=== PATIENT | male | born 1980 | race Caucasian/White ===

== ENCOUNTER 2016-06-06 21:29 | Inpatient (IN) | payer OTHER ==
[~2016-06-06] VITALS: Ht 175.3 cm; Wt 77.1 kg
[2016-06-06] MEDS ORDERED: MIRALAX 17 GM POWD.PACK PO PRN (22:30)
[2016-06-06] MEDS ORDERED: ONDANSETRON ODT 4 MG TAB.RAPDIS SL PRN (22:30)
[2016-06-06] MEDS ORDERED: diphenhydrAMINE 50 MG CAPSULE PO PRN (22:30)
[2016-06-06] MEDS ORDERED: THIAMINE HCL 200 MG/2 ML VIAL IM ONE (22:30)
[2016-06-06] MEDS ORDERED: ACETAMINOPHEN 325 MG TABLET PO PRN (22:30)
[2016-06-06] MEDS ORDERED: MAG HYDROX/AL HYDROX/SIMETH 30 ML LIQUID UDC PO PRN (22:30)
[2016-06-06] MEDS ORDERED: LORAZEPAM 1 MG TABLET PO PRN ×2 (22:30)
[2016-06-06] MEDS ORDERED: MAGNESIUM HYDROXIDE 30 ML LIQUID UDC PO PRN (22:30)
[2016-06-06] MEDS ORDERED: DICYCLOMINE HCL 20 MG TABLET PO PRN (22:30)
[2016-06-06] MEDS ORDERED: LOPERAMIDE HCL 2 MG CAPSULE PO PRN ×2 (22:30)
[2016-06-06] MEDS ORDERED: LORAZEPAM 2 MG/1 ML VIAL IM PRN (22:30)
[2016-06-06] MEDS ORDERED: ONDANSETRON 4 MG/2 ML VIAL IM PRN (22:30)
[2016-06-06 23:00] VITALS: BP 136/87
--- NOTE | 2016-06-06 23:00 | NUR ---
ADMISSION NOTE PATIENT ARRIVED IN THE UNIT AT THIS TIME. PATIENT IS A 35 YEAR OLD MALE WHO PRESENTS TO [facility] FOR SUPERVISED WITHDRAWAL FROM BENZO/ETOH DEPENDENCE. HEIGHT IS 5'9 AND WEIGHT IS 170 LBS. VS BP-136/87 P-98 T-98.0 R-17 PA-0/10 SpO2 98% ON RA. PATIENT REQUESTED TO BE FULL CODE AND REGULAR DIET (NO DAIRY HIS CHOICE). BODY CHECK DONE. PATIENT NOTED WITH ACNE ON BACK AREA. PATIENT IS ALLERGIC TO PENICILLIN. LUNGS CLEAR AND BOWEL SOUNDS ACTIVE ON ALL 4 QUADRANT. ABDOMEN SOFT AND NON -DISTENDED. PATIENT REPORTS PMH OF ANXIETY, DEPRESSION, ULCERATIVE COLITIS (8 YEARS AGO) AND SEIZURE WHEN HE WAS 25 YEARS OLD (ALCOHOL W/D). PATIENT IS HERE BECAUSE HE STATES "I'M ALEADY TIRED". 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 PATIENT'S DRUG OF CHOICE ARE FF: 1.XANAX PO- STARTED USING WHEN HE WAS 31 YRS OLD. PATIENT IS TAKING 1 MG DAILY FOR 4 MONTHS. LAST USE WAS 3 MG ON 06/06/16 2.ALCOHOL (RED & WHITE WINE)-STARTED USING WHEN HE WAS 11 YEARS OLD. DRINKING 3 (750 ML EACH ) BOTTLES FOR 8 MONTHS . LAST DRINK WAS 2 1/2 BOTTLES OF WHITE WINE ON 06/06/16 3.COCAINE (SNORT)-STARTED USING WHEN HE WAS 21 YEARS OLD. PATIENT IS USING 1/2 GRAM DAILY FOR 6 MONTHS. LAST USE WAS 1/2 GRAM ON 06/06/16 4.MARIJUANA - STARTED USING WHEN HE WAS 15 YEARS OLD. PATIENT SMOKES 1 GRAM DAILY FOR 6 MONTHS . LAST USE WAS 2 GRAM ON 06/06/16. TREATMENT HISTORY ARE FF: 1.[facility] IN [place] -06/02/15-30 DAYS 2.[facility] [place] -INTENSIVE OUTPATIENT [id number] MONTH PATIENT SMOKES 3 CIGARETTE DAILY . PATIENT DOES NOT HAVE PCP. PATIENT WAS INTOXICATED, NOTED WITH FLUSHED FACE, SWEATING AND ANXIOUS. CIWA 6. PATIENT STILL ABLE TO ANSWER QUESTIONS WITH SLURRED SPEECH AND DELAYED RESPONSE TIME. PATIENT ALREADY PROVIDED UA. PATIENT WAS SEEN BY DR. MULLIGAN IN INTAKE. PATIENT ORIENTED TO SURROUNDINGS AND HOW TO USE CALL LIGHT. PATIENT WITH HOME MEDS AND RECONCILED. PATIENT IS PLACED ON FALL/SEIZURE PRECAUTION. SAFETY MEASURES IN PLACE. CALL LIGHT IN REACH. WILL CONTINUE TO MONITOR.
[2016-06-06 23:10] LABS: BASOPHILS # (AUTO) 0.2 K/uL (0.0-8.0); BASOPHILS % (AUTO) 1.4 % (0.0-2.0); EOSINOPHILS # (AUTO) 0.1 K/uL (0.0-0.7); HEMATOCRIT 44.9 % (36.7-47.1); HEMOGLOBIN 15.7 g/dL (12.5-16.3); LYMPHOCYTES # (AUTO) 1.9 K/uL (20.0-40.0); LYMPHOCYTES % (AUTO) 17.4 % (20.5-51.5); MEAN CORPUSCULAR HEMOGLOBIN 33.9 uug (23.8-33.4); MEAN CORPUSCULAR HGB CONC 35 g/dL (32.5-36.3); MEAN CORPUSCULAR VOLUME 96.8 fL (73.0-96.2); MONOCYTES # (AUTO) 0.6 K/uL (2.0-10.0); MONOCYTES % (AUTO) 5.7 % (0.0-11.0); NEUTROPHILS # (AUTO) 8.3 K/uL (1.8-8.9); NEUTROPHILS % (AUTO) 74.5 % (38.5-71.5); PLATELET COUNT (AUTO) 211 K/uL (152-348); RED BLOOD CELL COUNT(AUTO) 4.64 MIL/uL (4.06-5.63); RED CELL DISTRIBUTION WIDTH 13.9 % (12.1-16.2); WHITE BLOOD COUNT (AUTO) 11.1 K/uL (3.6-10.2)
[2016-06-06 23:12] LABS: *AMPHETAMINE, URINE NEGATIVE (NEGATIVE); *BARBITURATE, URINE NEGATIVE (NEGATIVE); *CANNABINOID, URINE POSITIVE (NEGATIVE); *COCCAINE, URINE POSITIVE (NEGATIVE); *OPIATE, URINE NEGATIVE (NEGATIVE); *PHENCYCLIDINE SCREEN,URINE NEGATIVE (NEGATIVE)
[2016-06-06 23:30] LABS: THYROID STIMULATING HORMONE 0.48 mIU/mL (0.358-3.740)
[2016-06-06 23:48] LABS: ALBUMIN 4.5 g/dL (3.4-5.0); BILIRUBIN,TOTAL 0.3 mg/dL (0.2-1.0); CREATININE 0.8 mg/dL (0.6-1.3); POTASSIUM 3.9 mmol/L (3.5-5.1)
[2016-06-07] VITALS: BP 128/74
[2016-06-07] MEDS ORDERED: LORAZEPAM 1 MG TABLET ONE (00:08)
[2016-06-07] MEDS ORDERED: diphenhydrAMINE 50 MG CAPSULE ONE (00:08)
--- NOTE | 2016-06-07 00:08 | NUR ---
PRN BENADRYL /ONE TIME ATIVAN ADMINISTRATION PATIENT ANXIOUS, SWEATING, NOTED WITH FLUSHED FACE AND RESTLESS. CIWA 6. PRN BENADRYL AND ATIVAN GIVEN. WILL MONITOR FOR EFFECTIVENESS Addendum: 06/07/16 at 0518 by ELMIRA REHMAN LVN CLARIFICATION OF CIWA - ATIVAN GIVEN FOR CIWA 7
[2016-06-07 00:10] LABS: HIV-1/2 ANTIBODY NON REACTIVE (NONREACTIVE)
[2016-06-07 00:11] LABS: HIV-1 p24 ANTIGEN NON REACTIVE (NONREACTIVE)
--- NOTE | 2016-06-07 01:08 | NUR ---
PRN ATIVAN RE-ASSESSMENT PATIENT STATES HE FEELS MUCH BETTER. PATIENT IN BED, HIS ANXIETY SUBSIDED. WILL CONTINUE TO MONITOR
[2016-06-07] MEDS: IV NS 1000 ML 1,000 ML IV PRN ×2 (01:22→18:24)
--- NOTE | 2016-06-07 01:22 | NUR ---
IV STARTED PATIENT STARTED ON IV SODIUM CHLORIDE 0.9 5 1,0000 ML AT 125 MLS/HOUR ON LEFT HAND 22 G. IV FLUSHED NOTED PATENT AND INTACT. NO S/S OF INFILTRATE. WILL CONTINUE TO MONITOR.
--- NOTE | 2016-06-07 01:30 | NUR ---
PRN BENADRYL RE-ASSESSMENT PATIENT IN BED WITH EYES CLOSED. NO S/S OF DISTRESS. RESPIRATION EVEN AND UNLABORED. SAFETY MEASURES IN PLACE. CALL LIGHT IN REACH. WILL CONTINUE TO MONITOR.
[2016-06-07] MEDS ORDERED: GABA600T2 PO (03:11)
[2016-06-07] MEDS ORDERED: TRAZ-144 PO (03:13)
[2016-06-07] MEDS ORDERED: LACT1TAB22 PO (03:14)
[2016-06-07] MEDS ORDERED: CLON0.2T PO (03:16)
[2016-06-07] MEDS ORDERED: PARO30TA3 PO (03:17)
[2016-06-07] MEDS ORDERED: BALS750C PO (03:18)
[2016-06-07] MEDS ORDERED: TETR15DR99 OP (03:20)
[2016-06-07 04:00] VITALS: BP 113/66
[2016-06-07] MEDS: IBUPROFEN 400 MG TABLET PO PRN (05:52)
--- NOTE | 2016-06-07 05:52 | NUR ---
PRN MOTRIN ADMINISTRATION PATIENT C/O OF LEFT HAND PAIN 05/21. PRN MOTRIN GIVEN. WILL MONITOR FOR EFFECTIVENESS
--- NOTE | 2016-06-07 05:52 | NUR ---
IV STOPPED PATIENT NOTED IV SITE ON LEFT HAND, INFILTRATED. IV STOPPED. MOTRIN GIVEN. LEFT HAND ELEVATED. WILL CONTINUE TO MONITOR.
[2016-06-07] MEDS ORDERED: IBUPROFEN 400 MG TABLET ONE (06:00)
--- NOTE | 2016-06-07 06:13 | NUR ---
IV HELD PATIENT REFUSED RE-INSERTION AT THIS TIME. WILL ENDORSE TO NEXT SHIFT.
--- NOTE | 2016-06-07 06:52 | NUR ---
PRN MOTRIN RE-ASSESSMENT PATIENT STATES PAIN SUBSIDED. PAIN LEVEL 2/10. WILL CONTINUE TO MONITOR.
--- NOTE | 2016-06-07 07:25 | NUR ---
END OF SHIFT NOTE PATIENT IS A 35 YEAR OLD MALE, ADMITTED ON 06/06/16 FOR ETOH/BENZO DEPENDENCE. PATIENT WAS PLACED ON 5 DAY ATIVAN TAPER TO START TODAY. PATIENT IS FULL CODE, REGULAR DIET (NO DAIRY HIS CHOICE) AND ALLERGIC TO PENICILLIN. PATIENT REPORTS PMH OF ULCERATIVE COLITIS , ANXIETY, DEPRESSION AND ANEMIA. SEIZURE WHEN HE WAS 25 YEARS OLD (ALCOHOL W/D). PATIENT IS ON XANAX 1 MG FOR 4 MONTHS, ALCOHOL (WHITE /RED WINE) 3 BOTTLES 750 ML EACH FOR 8 MONTHS , COCAINE (SNORT) 1/2 GRAM FOR 6 MONTHS AND MARIJUANA 1 GRAM FOR 6 MONTHS. ON FALL SEIZURE PRECAUTION. PATIENT WITH ACNE ON BACK AREA. PATIENT WAS GIVEN THIAMINE INJECTION ON LEFT DELTOID , ONE TIME ATIVAN (CIWA 6) AND BENADRYL AT 0008 . PATIENT WAS ALSO STARTED ON IV SODIUM CHLORIDE 0.9% AT 125 MLS/HR ON LEFT HAND 22 G AT 0122. DUE TO PATIENT WITH ALCOHOLIC PANCREATITIS. 0555 IV WAS STOPPED DUE TO LEFT HAND NOTED INFILTRATED , LEFT HAND ELEVATED AND MOTRIN GIVEN. DR. MULLIGAN IS AWARE OF PATIENT'S ETHYL ALCOHOL % AND LIPASE RESULT. ON FALL/SEIZURE PRECAUTION. PATIENT REFUSED RE-INSERTION AND ENDORSE TO NEXT SHIFT. PATIENT NPO UNTIL FURTHER NOTICE. SAFETY MEASURES IN PLACE. CALL LIGHT IN REACH. WILL CONTINUE TO MONITOR. SLEPT 3 HOURS. FLUID INTAKE 775 ML. VOIDED X 1 . NO BM. LAST CIWA 3.
[2016-06-07 08:00] VITALS: BP 106/61
--- NOTE | 2016-06-07 08:00 | NUR ---
START OF SHift Pt 35 y/o male admitted for etoh benzo dependence. Pt received in room with eyes closed resting, but easily arousable to name. Pt alert and oriented to name, place, and time. Perrla. Skin warm and slightly moist to touch. Respirations even and unlabored. Bilateral tremors noted slightly. Attempted to insert peripheral IV, but pt refused at this time. Will attempt to start the IV again. Pt reminded that he is NPO and pt acknowledged. It was reported that pt slept for 3 hours last night. Bed on lowest position with side rails x2 up for safety. Call light within reach. No distress noted at this time.
[2016-06-07] MEDS ORDERED: TUBERCULIN,PURIF.PROT.DERIV. 5 TU/0.1 ML TEST ID ONE (09:00)
--- NOTE | 2016-06-07 09:30 | NUR ---
NSG ENTRY Pt refused to have IV inserted at this time. Will try again.
[2016-06-07] MEDS: MULTIVITAMINS,THERAPEUTIC TABLET PO SCH (09:43)
[2016-06-07] MEDS: LORAZEPAM 1 MG TABLET PO SCH ×4 (09:43→20:58)
[2016-06-07] MEDS: GABAPENTIN 300 MG CAPSULE PO SCH ×3 (09:43→20:58)
[2016-06-07] MEDS: THIAMINE HCL 100 MG TABLET PO SCH (09:43)
[2016-06-07] MEDS: FOLIC ACID 1 MG TABLET PO SCH (09:43)
[2016-06-07] MEDS: PATIENT MAY USE OWN MED- MD OK PO SCH ×3 (09:54→16:45)
[2016-06-07 12:00] VITALS: BP 113/68
--- NOTE | 2016-06-07 12:00 | NUR ---
IV line insertion 22G IV line inserted to R AC x 1 attempt, rapid blood return noted. Pt tolerated well. Primary nurse to follow up with IVF.
[2016-06-07] MEDS: PAROXETINE HCL 20 MG TABLET PO SCH (13:13)
[2016-06-07] MEDS ORDERED: KETOROLAC TROMETHAMINE 30 MG INJ IM PRN (14:15)
[2016-06-07 16:00] VITALS: BP 109/70
--- NOTE | 2016-06-07 18:18 | NUR ---
END OF SHIFT Pt 35 y/o male admitted for etoh benzo dependence. Pt alert and oriented to name, place, and time. Perrla. Skin warm and slightly moist to touch. Respirations even and unlabored. Bilateral hand tremors noted. Peripheral IV 22g on right AC, intact and in place, with no redness or infiltration noted, and is infusin NS 125mL/ hr, and is tolerated well. Pt remains on NPO. Pt needed to be prompted that he is not anything by mount. Pt medication compliant and tolerated well. No ASE noted. Bed on lowest position with side rail sx2.
--- NOTE | 2016-06-07 19:15 | NUR ---
Start of Shift Note: Patient is a 35 y/o male admitted on 06/06/16 for ETOH and Benzo dependence. Patient reported drinking 3 bottles of wine daily and he takes Xanax 1mg daily. Patient also uses Cocaine 0.5 gram and Marijuana 1 gram daily. Patient with past medical history of Ulcerative Colitis, Anxiety, Depression, Anemia and Seizure history d/t benzo withdrawal. Seizure and Fall precaution. Patient is on a regular diet with Allergies to Penicillins. Full Code status. Patient has 22gauge IV access on his left AC patent and intact with running NS @ 125 cc/hr. Patient is NPO d/t high levels of Lipase and Amylase. Pt may drink fluids when taking medications only Patient was placed on a 5-day Ativan taper. Last CIWA is 2. No PRN's medications given during day shift. Patient is alert & oriented x4. No shortness of breath noted. Respiration even & unlabored. Abdomen soft & non-distended. Bowel sounds active in all four quadrants. No nausea/vomiting noted. Patient denies pain or discomfort. No hallucinations noted. Patient denies SI/HI. Bilateral hand tremor felt. Safety precautions are in place. Bed locked in lowest position. Both side rails up. Call light within pt's reach. Will continue to monitor patient.
[2016-06-07 20:00] VITALS: BP 114/7
[2016-06-07] MEDS: TRAZODONE 50 MG TABLET PO SCH (20:58)
[2016-06-08] VITALS: BP 120/75
[2016-06-08 04:00] VITALS: BP 129/57
[2016-06-08] MEDS: PANTOPRAZOLE SODIUM 40 MG TABLET.DR PO SCH (06:59)
--- NOTE | 2016-06-08 07:31 | NUR ---
End of Shift Note: Patient is a 35 y/o male admitted on 06/06/16 for ETOH and Benzo dependence. Patient reported drinking 3 bottles of wine daily and he takes Xanax 1mg daily. Patient also uses Cocaine 0.5 gram and Marijuana 1 gram daily. Patient with past medical history of Ulcerative Colitis, Anxiety, Depression, Anemia and Seizure history d/t benzo withdrawal. Seizure and Fall precaution. Patient is on a regular diet with Allergies to Penicillins. Full Code status. Patient has 22gauge IV access on his left AC patent and intact. IVF done. Patient still on NPO status. Pt may have few sips of water with medications. Patient is on a 5-day Ativan taper and tolerating well. Last CIWA is 2. No PRN's medications given during my shift. Patient remained stable and vitals remains WNL. Pt remained compliant with treatment plan. Pt slept for a total of 9 hours. Pt consumed 50 ml of fluids. Voided 2x with no bowel movement. All needs attended & met. Safety precautions are in place. Will endorse pt to day shift nurse.
[2016-06-08 08:00] VITALS: BP 137/78
--- NOTE | 2016-06-08 08:00 | NUR ---
START OF SHIFT Pt 35 y/o male admitted for etoh benzo dependence. Pt received in room awake sitting on bed. Pt alert and oriented to name, place, and time. Perrla. Skin warm and slightly moist to touch. Respirations even and unlabored. Bilateral tremors noted slightly. Labs were drawn this morning, awaiting results. Pt reminded that he is NPO and pt acknowledged. It was reported that pt slept for 9 hours last night. Bed on lowest position with side rails x2 up for safety. Call light within reach. No distress noted at this time.
[2016-06-08 08:06] LABS: BASOPHILS % (AUTO) 0.6 % (0.0-2.0); EOSINOPHILS # (AUTO) 0.2 K/uL (0.0-0.7); EOSINOPHILS % (AUTO) 2.9 % (0.0-7.0); HEMATOCRIT 42.2 % (36.7-47.1); HEMOGLOBIN 14.3 g/dL (12.5-16.3); LYMPHOCYTES # (AUTO) 1.7 K/uL (20.0-40.0); LYMPHOCYTES % (AUTO) 21.7 % (20.5-51.5); MEAN CORPUSCULAR HEMOGLOBIN 33.3 uug (23.8-33.4); MEAN CORPUSCULAR HGB CONC 34 g/dL (32.5-36.3); MEAN CORPUSCULAR VOLUME 98.6 fL (73.0-96.2); MONOCYTES # (AUTO) 0.4 K/uL (2.0-10.0); MONOCYTES % (AUTO) 5.8 % (0.0-11.0); NEUTROPHILS # (AUTO) 5.4 K/uL (1.8-8.9); PLATELET COUNT (AUTO) 181 K/uL (152-348); RED BLOOD CELL COUNT(AUTO) 4.28 MIL/uL (4.06-5.63); RED CELL DISTRIBUTION WIDTH 14.1 % (12.1-16.2); WHITE BLOOD COUNT (AUTO) 7.7 K/uL (3.6-10.2)
[2016-06-08 08:18] LABS: ALBUMIN 3.3 g/dL (3.4-5.0); BILIRUBIN,DIRECT 0.1 mg/dL (0.0-0.2); BILIRUBIN,TOTAL 0.4 mg/dL (0.2-1.0); CALCIUM 8.8 mg/dL (8.5-10.1); CREATININE 0.9 mg/dL (0.6-1.3); PHOSPHOROUS 3.4 mg/dL (2.5-4.9); POTASSIUM 3.9 mmol/L (3.5-5.1); TOTAL PROTEIN, SERUM 6.1 g/dL (6.4-8.2)
[2016-06-08] MEDS: LORAZEPAM 1 MG TABLET PO SCH ×3 (08:33→22:10)
[2016-06-08] MEDS: GABAPENTIN 300 MG CAPSULE PO SCH ×3 (08:33→22:10)
[2016-06-08] MEDS: MULTIVITAMINS,THERAPEUTIC TABLET PO SCH (08:33)
[2016-06-08] MEDS: PATIENT MAY USE OWN MED- MD OK PO SCH ×3 (08:33→17:10)
[2016-06-08] MEDS: FOLIC ACID 1 MG TABLET PO SCH (08:34)
[2016-06-08] MEDS: PAROXETINE HCL 20 MG TABLET PO SCH (08:34)
[2016-06-08] MEDS: THIAMINE HCL 100 MG TABLET PO SCH (08:34)
[2016-06-08 09:08] LABS: FOLIC ACID 10.6 NG/ML (8.6-58.9)
--- NOTE | 2016-06-08 09:10 | NUR ---
NSG ENTRY/ LABS lipase =126. Pt denies any stomach pain. Pt also states "i'm very hungry". Dr. Correia made aware with new orders to dc npo, noted and carried out.
--- NOTE | 2016-06-08 09:30 | NUR ---
NSG ENTRY Pt tolerated meal well. Pt denies any stomach pain.
--- NOTE | 2016-06-08 11:25 | NUR ---
IV IV dc'd and tolerated well.
[2016-06-08 12:00] VITALS: BP 134/81
[2016-06-08] MEDS: HYDROXYZINE PAMOATE 25 MG CAPSULE PO PRN (12:35)
[2016-06-08] MEDS: CLONIDINE HCL 0.1 MG TABLET PO PRN (12:35)
--- NOTE | 2016-06-08 12:38 | NUR ---
PRN Pt states feels anxious and uneasy. Vistaril po prn per MD order given and tolerated well.
--- NOTE | 2016-06-08 12:39 | NUR ---
PRN Pt states still feels very uneasy and anxious. Catapres po prn per MD order given and tolerated well.
[2016-06-08 13:25] LABS: HCV AB <0.1 s/co ratio (0.0-0.9); HEPATITIS B CORE AB, IgM Negative (Negative); HEPATITIS B SURFACE AG Negative (Negative)
--- NOTE | 2016-06-08 13:38 | NUR ---
MAURICE GONSALVES Pt observed in bed watching television. Pt states he feels less anxious.
--- NOTE | 2016-06-08 13:39 | NUR ---
MAURICE GONSALVES Pt observed in bed watching television. Pt states he feels less anxious.
[2016-06-08 16:00] VITALS: BP 109/69
--- NOTE | 2016-06-08 18:29 | NUR ---
END OF SHIFT Pt 35 y/o male admitted for etoh benzo dependence. Pt alert and oriented to name, place, and time. Perrla. Skin warm and slightly moist to touch. Respirations even and unlabored. Bilateral hand tremors noted. Peripheral IV was dc'd today and pt tolerated well. Pt was removed off NPO this morning and tolerating food well. Pt medication compliant and tolerated well. No ASE noted. Bed on lowest position with side rail sx2.
--- NOTE | 2016-06-08 19:15 | NUR ---
Start of Shift Note: Patient is a 35 y/o male admitted on 06/06/16 for ETOH and Benzo dependence. Patient reported drinking 3 bottles of wine daily and he takes Xanax 1mg daily. Patient also uses Cocaine 0.5 gram and Marijuana 1 gram daily. Patient with past medical history of Ulcerative Colitis, Anxiety, Depression, Anemia and Seizure history d/t benzo withdrawal. Seizure and Fall precaution. Patient is on a regular diet with Allergies to Penicillins. Full Code status. Current Lipase is 126. IV DCd and pt is no longer NPO. Patient is on a 5-day Ativan taper. Last CIWA is 2. Pt was given PRN Catapres & Vistaril during day shift. Patient is alert & oriented x4. No shortness of breath noted. Respiration even & unlabored. Abdomen soft & non-distended. Bowel sounds active in all four quadrants. No nausea/vomiting noted. Patient complains of mild headache. No hallucinations noted. Patient denies SI/HI. Bilateral hand tremor felt. Safety precautions are in place. Bed locked in lowest position. Both side rails up. Call light within pt's reach. Will continue to monitor patient.
[2016-06-08] MEDS: IBUPROFEN 400 MG TABLET PO PRN (20:47)
--- NOTE | 2016-06-08 20:47 | NUR ---
PRN Administration Patient complains of 8/10 generalized body aches. Patient appears restless with facial grimacing noted. Non-pharmacological intervention provided but not effective. PRN Motrin administered as ordered. Safety precautions are in place. Will continue to monitor patient.
[2016-06-08 20:56] VITALS: BP 116/67
--- NOTE | 2016-06-08 21:47 | NUR ---
PRN Reassessment Patient verbalized relief from body aches. Patient is more comfortable lying in bed. All needs attended. Safety precautions are in place. Will continue to monitor patient.
[2016-06-08] MEDS: TRAZODONE 50 MG TABLET PO SCH (22:10)
[2016-06-09] VITALS: BP 102/69
[2016-06-09 04:00] VITALS: BP 97/46
[2016-06-09] MEDS: PANTOPRAZOLE SODIUM 40 MG TABLET.DR PO SCH (06:37)
--- NOTE | 2016-06-09 07:00 | NUR ---
End of Shift Note: Patient is a 35 y/o male admitted on 06/06/16 for ETOH and Benzo dependence. Patient reported drinking 3 bottles of wine daily and he takes Xanax 1mg daily. Patient also uses Cocaine 0.5 gram and Marijuana 1 gram daily. Patient with past medical history of Ulcerative Colitis, Anxiety, Depression, Anemia and Seizure history d/t benzo withdrawal. Seizure and Fall precaution. Patient is on a regular diet with Allergies to Penicillins. Full Code status. Patient is on a 5-day Ativan taper and tolerating well. Pt reported that medication is effective in controlling his withdrawal symptoms. Last CIWA is 6. PRN Motrin was given for body aches and was effective. Patient remained stable and vitals remains WNL. Pt remained compliant with treatment plan. Pt slept for a total of 7 hours. Pt consumed 1355 ml of fluids. Voided 3x with no bowel movement. All needs attended & met. Safety precautions are in place. Will endorse pt to day shift nurse.
--- NOTE | 2016-06-09 07:30 | NUR ---
Start of shift note; Received report from night nurse. Patient is a 35 y/o male admitted on 06/06/16 for Benzodiazepine/ETOH dependence. Patient reported history of ulcerative colitis, seizure history, anxiety, depression, anemia. Patient was placed on a 5 day Ativan taper, no adverse reactions noted. Patient is currently resting with eyes closed, respirations even and unlabored. Bed in lowest position, call light within reach. Will continue to monitor patient.
[2016-06-09 08:00] VITALS: BP 130/80
[2016-06-09] MEDS: THIAMINE HCL 100 MG TABLET PO SCH (09:19)
[2016-06-09] MEDS: PAROXETINE HCL 20 MG TABLET PO SCH (09:19)
[2016-06-09] MEDS: MULTIVITAMINS,THERAPEUTIC TABLET PO SCH (09:19)
[2016-06-09] MEDS: LORAZEPAM 1 MG TABLET PO SCH ×4 (09:20→21:20)
[2016-06-09] MEDS: PATIENT MAY USE OWN MED- MD OK PO SCH ×3 (09:20→16:27)
[2016-06-09] MEDS: FOLIC ACID 1 MG TABLET PO SCH (09:20)
[2016-06-09] MEDS: GABAPENTIN 300 MG CAPSULE PO SCH ×3 (09:20→21:19)
[2016-06-09 12:00] VITALS: BP 140/103
[2016-06-09] MEDS: CLONIDINE HCL 0.1 MG TABLET PO PRN (12:12)
--- NOTE | 2016-06-09 12:17 | NUR ---
PRN medication; Patient appears agitated and complaining of chills with current BP of 140/103, HR of 71. PRN Clonidine 0.1mg given for agitation and increased BP. Will continue to monitor patient for effectiveness of medication.
--- NOTE | 2016-06-09 13:17 | NUR ---
Re-assessment; Patient appears calm and comfortable with current BP of 128/77, HR 76. PRN medication is effective.
[2016-06-09 16:00] VITALS: BP 119/75
--- NOTE | 2016-06-09 18:31 | NUR ---
End of shift note; Patient is AOX4. Patient is a 35 y/o male admitted on 06/06/16 for Benzodiazepine/ETOH dependence. Patient reported history of ulcerative colitis, seizure history, anxiety, depression, anemia. Patient was placed on a 5 day Ativan taper, no adverse reactions noted. Patient remained compliant with treatment plan and medication regime. Medications were effective in reducing withdrawal symptoms. Patient is on fall and seizure precautions. Bed in lowest position,call light within reach. Met all needs.
--- NOTE | 2016-06-09 19:15 | NUR ---
Start of Shift Note: Patient is a 35 y/o male admitted on 06/06/16 for ETOH and Benzo dependence. Patient with past medical history of Ulcerative Colitis, Anxiety, Depression, Anemia and Seizure history d/t benzo withdrawal. Seizure and Fall precaution. Patient is on a regular diet with Allergies to Penicillins. Full Code status. Patient is on a 5-day Ativan taper and tolerating well. Last CIWA is 5. Pt was given PRN Clonidine during day shift. Patient is alert & oriented x4. No shortness of breath noted. Respiration even & unlabored. Abdomen soft & non-distended. Bowel sounds active in all four quadrants. No nausea/vomiting noted. Patient complains of 4/10 body aches. No hallucinations noted. Patient denies SI/HI. Bilateral hand tremor noted. Safety precautions are in place. Bed locked in lowest position. Both side rails up. Call light within pt's reach. Will continue to monitor patient.
[2016-06-09 20:00] VITALS: BP 129/78
[2016-06-09] MEDS: TRAZODONE 50 MG TABLET PO SCH (21:19)
[2016-06-09] MEDS: CLONIDINE HCL 0.1 MG TABLET PO SCH (21:19)
[2016-06-10] VITALS: BP 109/61
[2016-06-10 04:00] VITALS: BP 102/56
[2016-06-10] MEDS: PANTOPRAZOLE SODIUM 40 MG TABLET.DR PO SCH (06:36)
[2016-06-10] MEDS: BACLOFEN 20 MG TABLET PO PRN ×2 (06:39→22:31)
--- NOTE | 2016-06-10 06:39 | NUR ---
Prn Administration Patient complains of 8/10 body aches. Patient is restless and with facial grimacing noted. PRN Baclofen administered as ordered. Will continue to monitor patient.
--- NOTE | 2016-06-10 07:05 | NUR ---
End of Shift Note: Patient is a 35 y/o male admitted on 06/06/16 for ETOH and Benzo dependence. Patient reported drinking 3 bottles of wine daily and he takes Xanax 1mg daily. Patient also uses Cocaine 0.5 gram and Marijuana 1 gram daily. Patient with past medical history of Ulcerative Colitis, Anxiety, Depression, Anemia and Seizure history d/t benzo withdrawal. Seizure and Fall precaution. Patient is on a regular diet with Allergies to Penicillins. Full Code status. Patient is on a 5-day Ativan taper and tolerating well. Pt reported that medication is effective in controlling his withdrawal symptoms. Last CIWA is 5. Pt was given PRN Baclofen for body aches. Patient remained stable and vitals remains WNL. Pt remained compliant with treatment plan. Pt slept for a total of 7 hours. Pt consumed 1210 ml of fluids. Voided 1x with 1x bowel movement. All needs attended & met. Safety precautions are in place. Will endorse pt to day shift nurse.
[2016-06-10 08:00] VITALS: BP 106/65
[2016-06-10] MEDS: THIAMINE HCL 100 MG TABLET PO SCH (08:42)
[2016-06-10] MEDS: MULTIVITAMINS,THERAPEUTIC TABLET PO SCH (08:42)
[2016-06-10] MEDS: GABAPENTIN 300 MG CAPSULE PO SCH ×3 (08:42→21:26)
[2016-06-10] MEDS: PAROXETINE HCL 20 MG TABLET PO SCH (08:42)
[2016-06-10] MEDS: FOLIC ACID 1 MG TABLET PO SCH (08:42)
[2016-06-10] MEDS: PATIENT MAY USE OWN MED- MD OK PO SCH ×3 (08:43→17:00)
[2016-06-10] MEDS: CLONIDINE HCL 0.1 MG TABLET PO SCH ×3 (08:43→21:26)
[2016-06-10] MEDS: LORAZEPAM 1 MG TABLET PO SCH ×3 (08:43→21:26)
[2016-06-10 12:00] VITALS: BP 114/85
[2016-06-10] MEDS: HYDROXYZINE PAMOATE 25 MG CAPSULE PO PRN (12:00)
--- NOTE | 2016-06-10 12:00 | NUR ---
PRN medication; Patient appears to be very anxious and agitated m/b by facial grimacing, patient pacing back and forth in the room and HR of 101. PRN Vistaril 25mg PO given for anxiety. Will continue to monitor patient for effectiveness of medication.
[2016-06-10] MEDS ORDERED: LORAZEPAM 1 MG TABLET PO ONE (12:30)
--- NOTE | 2016-06-10 12:31 | NUR ---
New Order; MD ordered One time dose of Ativan 1mg PO now. Patient's current CIWA is 10 manifested by anxiety, sweating, agitation, tremors to touch, BP of 124/95, HR of 101. Order given as per MD order. Will continue to monitor patient.
--- NOTE | 2016-06-10 13:00 | NUR ---
Re-assessment; Patient appears calm and comfortable, PRN Vistaril is effective. Will continue to monitor patient.
--- NOTE | 2016-06-10 13:31 | NUR ---
Re-assessment; One time order is effective, patient appears calm at this time. Patient's CIWA score went down to 6 from CIWA of 10. Will continue to monitor patient.
[2016-06-10 16:00] VITALS: BP 137/88
[2016-06-10 20:00] VITALS: BP 116/95
--- NOTE | 2016-06-10 20:00 | NUR ---
Start of Shift Pt is a 35 year old male admitted for Benzo/ETOH dependence, placed on 5 day Ativan taper. PMH: Ulcerative colitis, anxiety, depression, anemia and seizure history d/t withdrawal. Allergies to PCN, regular diet , fall/seizure precautions and full code. Upon assessment, pt presents with anxiety, tremors felt upon touch, reports body aches mild chills throughout body, skin flushed/clammy, respirations even/unlabored, denies SOB/chest pain, denies n/v/d, denies SI/HI, bowel sounds active x4, abdomen soft. Safety measures in place, call light within reach, side rails up x2, bed locked and in low position. will continue to monitor.
[2016-06-10] MEDS: TRAZODONE 50 MG TABLET PO SCH (21:26)
--- NOTE | 2016-06-10 22:31 | NUR ---
PRN Administration Pt reports muscle aches in neck and lower back, aches rated 8/10. Baclofen 20mg PRN administered. Safety measure in place. Will continue to monitor.
--- NOTE | 2016-06-10 23:31 | NUR ---
PRN Reassessment Upon reassessment, pt reports muscle aches have decreased to 3-4/10 and subsiding. needs met, safety measures in place. Will continue to monitor.
[2016-06-11] VITALS: BP 103/88
--- NOTE | 2016-06-11 | NUR ---
Vital Signs BP 103/88, pulse 93, SpO2 99%, respirations 14, temp 98 CIWA deferred d/t pt sleeping, to assess while pt is awake as ordered. Safety measures in place. Will continue to monitor.
[2016-06-11 04:00] VITALS: BP 96/54
--- NOTE | 2016-06-11 04:00 | NUR ---
Vital Signs BP 96/54, pulse 68, SpO2 98%, respirations 16, temp 97.8 CIWA deferred d/t pt sleeping, to assess while pt is awake as ordered. Safety measures in place. Will continue to monitor.
[2016-06-11] MEDS: PANTOPRAZOLE SODIUM 40 MG TABLET.DR PO SCH (06:50)
--- NOTE | 2016-06-11 07:00 | NUR ---
End of Shift Pt is a 35 year old male admitted for Benzo/ETOH dependence, placed on 5 day Ativan taper. PMH: Ulcerative colitis, anxiety, depression, anemia and seizure history d/t withdrawal. Allergies to PCN, regular diet , fall/seizure precautions and full code. During shift, pt presented with anxiety, tremors felt upon touch, reported body aches mild chills throughout body, skin flushed/clammy - scheduled taper medications administered, CIWA6. Baclofen 20mg PRN administered for muscle aches in neck and lower back rated 8/10 - effective aches decreased to 3-4/10. Pt slept for 6 hours, intake of 3105 ml PO and voids x2. Safety measures in place, call light within reach, side rails up x2, bed locked and in low position. Endorsed to day shift nurse.
--- NOTE | 2016-06-11 07:35 | NUR ---
START OF SHIFT Received report from shift mgr nurse. 35 year old male patient admitted on 06/06/16 for Benzo, ETOH, Cocaine and Marijuana dependence. Pt has been placed on a 5 day Ativan taper and is tolerating well. Pt has medical hx of ulcerative colitis, anxiety, depression and anemia. Pt is allergic to PCN, full code and regular diet. Pt most recent CIWA 6. Pt has hx of seizures that are withdrawal induced. PRN Baclofen was administered at night and effective. V/S remain WNL. All needs met at this time. Safety precautions are in place, will continue to monitor.
[2016-06-11 07:50] LABS: ALANINE AMINOTRANSFERASE 116 U/L (16-63); ALBUMIN 3.8 g/dL (3.4-5.0); ALKALINE PHOSPHATASE 53 U/L (50-136); ASPARTATE AMINOTRANSFERASE 90 U/L (15-37); BILIRUBIN,DIRECT < 0.1 mg/dL (0.0-0.2); BILIRUBIN,TOTAL 0.4 mg/dL (0.2-1.0); CARBON DIOXIDE 30 mmol/L (21-32); CHLORIDE 106 mmol/L (98-107); CREATININE 0.8 mg/dL (0.6-1.3); GFR 111 mL/min (>60); GLUCOSE 92 mg/dL (74-106); LIPASE 232 U/L (73-393); PHOSPHOROUS 4.2 mg/dL (2.5-4.9); SODIUM SERUM 144 mmol/L (136-145); TOTAL PROTEIN, SERUM 6.9 g/dL (6.4-8.2); UREA NITROGEN, BLOOD 16 mg/dL (7-18)
[2016-06-11 08:10] VITALS: BP 116/71
[2016-06-11 08:23] LABS: BASOPHILS % (AUTO) 0.5 % (0.0-2.0); EOSINOPHILS # (AUTO) 0.2 K/uL (0.0-0.7); EOSINOPHILS % (AUTO) 2.2 % (0.0-7.0); HEMATOCRIT 44.2 % (36.7-47.1); HEMOGLOBIN 14.8 g/dL (12.5-16.3); LYMPHOCYTES # (AUTO) 2.4 K/uL (20.0-40.0); LYMPHOCYTES % (AUTO) 27.9 % (20.5-51.5); MEAN CORPUSCULAR HEMOGLOBIN 33.1 uug (23.8-33.4); MEAN CORPUSCULAR HGB CONC 34 g/dL (32.5-36.3); MEAN CORPUSCULAR VOLUME 98.7 fL (73.0-96.2); MONOCYTES # (AUTO) 0.9 K/uL (2.0-10.0); MONOCYTES % (AUTO) 10.2 % (0.0-11.0); NEUTROPHILS # (AUTO) 5.3 K/uL (1.8-8.9); NEUTROPHILS % (AUTO) 59.2 % (38.5-71.5); PLATELET COUNT (AUTO) 203 K/uL (152-348); RED BLOOD CELL COUNT(AUTO) 4.48 MIL/uL (4.06-5.63); RED CELL DISTRIBUTION WIDTH 14.1 % (12.1-16.2); WHITE BLOOD COUNT (AUTO) 8.8 K/uL (3.6-10.2)
[2016-06-11] MEDS: MULTIVITAMINS,THERAPEUTIC TABLET PO SCH (08:35)
[2016-06-11] MEDS: FOLIC ACID 1 MG TABLET PO SCH (08:35)
[2016-06-11] MEDS: CLONIDINE HCL 0.1 MG TABLET PO SCH ×3 (08:35→20:59)
[2016-06-11] MEDS: GABAPENTIN 300 MG CAPSULE PO SCH ×3 (08:35→20:59)
[2016-06-11] MEDS: BACLOFEN 20 MG TABLET PO PRN ×2 (08:35→16:26)
--- NOTE | 2016-06-11 08:35 | NUR ---
PRN BACLOFEN Pt c/o 05/21 back pain. PRN Baclofen administered as ordered. Pt encouraged to rest. Will reassess.
[2016-06-11] MEDS: THIAMINE HCL 100 MG TABLET PO SCH (08:36)
[2016-06-11] MEDS: LORAZEPAM 1 MG TABLET PO SCH ×2 (08:36→21:00)
[2016-06-11] MEDS: PAROXETINE HCL 20 MG TABLET PO SCH (08:36)
[2016-06-11] MEDS: PATIENT MAY USE OWN MED- MD OK PO SCH ×3 (08:38→17:15)
--- NOTE | 2016-06-11 09:35 | NUR ---
REASSESSMENT Pt reports pain is still 4/10, but states "I will rest, I don't want any more medication at this time." Nonpharmacological methods encouraged. Will monitor.
[2016-06-11 12:26] VITALS: BP 126/80
--- NOTE | 2016-06-11 16:26 | NUR ---
PRN BACLOFEN Pt complains of 8/10 back muscle aches. PRN Baclofen administered as ordered. Will reassess.
[2016-06-11 17:15] VITALS: BP 123/80
--- NOTE | 2016-06-11 17:26 | NUR ---
REASSESSMENT Pt states back pain is slowly decreasing and reports it as 5/10 at this time.
--- NOTE | 2016-06-11 18:45 | NUR ---
END OF SHIFT 35 year old male patient admitted on 06/06/16 for Benzo, ETOH, Cocaine and Marijuana dependence. Pt has been placed on a 5 day Ativan taper and is tolerating well. Pt has medical hx of ulcerative colitis, anxiety, depression and anemia. Pt is allergic to PCN, full code and regular diet. Pt most recent CIWA 4 at 1700. Pt has hx of seizures that are withdrawal induced. PRN Baclofen was administered x2 and effective. Pt reports BM x2. Pt attends groups and socializes with peers. V/S remain WNL. All needs met at this time. Safety precautions are in place, will continue to monitor.
[2016-06-11 20:00] VITALS: BP 131/86
--- NOTE | 2016-06-11 20:00 | NUR ---
Start of Shift Pt is a 35 year old male admitted for Benzo/ETOH dependence, placed on 5 day Ativan taper. PMH: Ulcerative colitis, anxiety, depression, anemia and seizure history d/t withdrawal. Allergies to PCN, regular diet , fall/seizure precautions and full code. Upon assessment, pt presents with anxiety, reports body aches in lower back, skin flushed/clammy, respirations even/unlabored, denies SOB/chest pain, denies n/v/d, denies SI/HI, bowel sounds active x4, abdomen soft. Safety measures in place, call light within reach, side rails up x2, bed locked and in low position. will continue to monitor.
[2016-06-11] MEDS: TRAZODONE 100 MG TABLET PO SCH (20:59)
[2016-06-11] MEDS: IBUPROFEN 400 MG TABLET PO PRN (21:00)
[2016-06-11] MEDS ORDERED: TRAZODONE 50 MG TABLET PO SCH (21:00)
--- NOTE | 2016-06-11 21:00 | NUR ---
PRN Administration Pt reports back pain, rated 7/10, requests relief. Motrin 400mg PRN administered. Safety measures in place. Will continue to monitor.
--- NOTE | 2016-06-11 22:00 | NUR ---
PRN Reassessment Upon reassessment, reports back pain 04/20. Needs met, safety measures in place, will continue to monitor.
[2016-06-12] VITALS: BP 121/80
--- NOTE | 2016-06-12 | NUR ---
Vital Signs BP 121/80, pulse 93, respirations 17, SpO2 98%, temp 98, no reports of pain CIWA deferred d/t pt sleeping, to assess while pt is awake as ordered. Safety measures in place. Will continue to monitor.
[2016-06-12 04:00] VITALS: BP 95/53
--- NOTE | 2016-06-12 04:00 | NUR ---
Vital Signs BP 95/53, pulse 58, respirations 12, SpO2 96%, temp 98, no reports of pain CIWA deferred d/t pt sleeping, to assess while pt is awake as ordered. Safety measures in place. Will continue to monitor.
[2016-06-12] MEDS: PANTOPRAZOLE SODIUM 40 MG TABLET.DR PO SCH (06:47)
--- NOTE | 2016-06-12 07:00 | NUR ---
End of Shift Pt is a 35 year old male admitted for Benzo/ETOH dependence, placed on 5 day Ativan taper. PMH: Ulcerative colitis, anxiety, depression, anemia and seizure history d/t withdrawal. Allergies to PCN, regular diet , fall/seizure precautions and full code. During shift, pt presented with anxiety, reported body aches in lower back, skin flushed/clammy - scheduled taper medications administered, effective in management if in s/s of withdrawal, CIWA 4. Motrin 400mg PRN administered for back pain, effective. Pt refused scheduled Protonix 40mg PRN in AM. Pt slept for 5 hours, intake of 1855 ml PO and voids x2. Safety measures in place, call light within reach, side rails up x2, bed locked and in low position. Endorsed to day shift nurse.
--- NOTE | 2016-06-12 07:30 | NUR ---
Start of shift note; Received report from night nurse. Patient is a 35 y/o male admitted on 06/06/16 for Benzodiazepine/ETOH dependence. Patient reported history of ulcerative colitis, seizure history, anxiety, depression, anemia. Patient was placed on a 5 day Ativan taper, no adverse reactions noted. Patient is currently resting with eyes closed, respirations even and unlabored. Bed in lowest position, call light within reach. Patient slept for 5 hours. Will continue to monitor patient.
[2016-06-12 08:00] VITALS: BP 116/66
[2016-06-12] MEDS: FOLIC ACID 1 MG TABLET PO SCH (08:37)
[2016-06-12] MEDS: MULTIVITAMINS,THERAPEUTIC TABLET PO SCH (08:37)
[2016-06-12] MEDS: CLONIDINE HCL 0.1 MG TABLET PO SCH ×3 (08:37→21:07)
[2016-06-12] MEDS: PAROXETINE HCL 20 MG TABLET PO SCH (08:37)
[2016-06-12] MEDS: GABAPENTIN 300 MG CAPSULE PO SCH ×3 (08:38→21:07)
[2016-06-12] MEDS: THIAMINE HCL 100 MG TABLET PO SCH (08:38)
[2016-06-12] MEDS: PATIENT MAY USE OWN MED- MD OK PO SCH ×3 (08:38→16:50)
[2016-06-12] MEDS ORDERED: LORAZEPAM 1 MG TABLET PO SCH (09:00)
[2016-06-12] MEDS: BACLOFEN 20 MG TABLET PO PRN ×2 (09:51→16:50)
--- NOTE | 2016-06-12 09:55 | NUR ---
PRN medication; Patient is complaining of abdominal spasms/cramps, PRN Bentyl 20mg PO PRN given as per ordered and Baclofen 20mg PO PRN given for muscle spams. Will monitor patient for effectiveness of medication.
--- NOTE | 2016-06-12 10:55 | NUR ---
Re-assessment; Patient denies abdominal spasms/cramps and decrease in muscle spasms. PRN medications are effective.
[2016-06-12 12:00] VITALS: BP 121/65
[2016-06-12 14:47] LABS: *AMPHETAMINE, URINE NEGATIVE (NEGATIVE); *BARBITURATE, URINE NEGATIVE (NEGATIVE); *CANNABINOID, URINE POSITIVE (NEGATIVE); *COCCAINE, URINE NEGATIVE (NEGATIVE); *OPIATE, URINE NEGATIVE (NEGATIVE); *PHENCYCLIDINE SCREEN,URINE NEGATIVE (NEGATIVE)
--- NOTE | 2016-06-12 15:10 | NUR ---
Therapist encouraged client to attend group.
[2016-06-12] MEDS: DICYCLOMINE HCL 20 MG TABLET PO SCH ×2 (15:16→21:07)
[2016-06-12 16:00] VITALS: BP 110/67
--- NOTE | 2016-06-12 16:50 | NUR ---
PRN medication; Patient is complaining of muscle spasms. PRN Baclofen 20mg PO given as per ordered. Will continue to monitor for effectiveness of medication.
[2016-06-12] MEDS ORDERED: Gabapentin PO ×2 (17:17)
[2016-06-12] MEDS ORDERED: Trazodone Hcl PO (17:17)
[2016-06-12] MEDS ORDERED: Baclofen PO (17:17)
[2016-06-12] MEDS ORDERED: Ibuprofen PO (17:17)
[2016-06-12] MEDS ORDERED: HYDR-3895 PO (17:17)
[2016-06-12] MEDS ORDERED: DICY20TA28 PO (17:17)
[2016-06-12] MEDS ORDERED: CLON0.1T14 PO (17:17)
--- NOTE | 2016-06-12 17:50 | NUR ---
Re-assessment; Patient denies muscle spasms at this time. PRN medication is effective.
--- NOTE | 2016-06-12 18:23 | NUR ---
End of shift note; Patient is AOX4. Patient is a 35 y/o male admitted on 06/06/16 for Benzodiazepine/ETOH dependence. Patient reported history of ulcerative colitis, seizure history, anxiety, depression, anemia. Patient was placed on a 5 day Ativan taper completed taper without any adverse reactions noted. Patient remained compliant with treatment plan and medication regime. Medications were effective in reducing withdrawal symptoms. Patient is medically cleared for discharge for tomorrow. Patient is on fall and seizure precautions. Bed in lowest position,call light within reach. Met all needs.
[2016-06-12 20:00] VITALS: BP 112/71
--- NOTE | 2016-06-12 20:00 | NUR ---
Start of Shift Patient is a 35-year old, male, admitted for Benzodiazepine and ETOH dependence. With PMHx of Ulcerative Colitis, Seizure (10 yrs ago d/t ETOH withdrawal, Anxiety, Depression and Anemia. Patient was placed on a 5-day Ativan taper, started 06/07/2016 and with no adverse reactions noted. Pt is AAOx4, no SOB nor anxiety noted at this time. Pt is ambulatory with steady gait. No skin issues. Fall, universal and safety prec in place. Call light within reach. Kept pt warm, dry and comfortable. All needs met. Latest CIWA=1. Will continue to monitor.
[2016-06-12] MEDS: TRAZODONE 100 MG TABLET PO SCH (21:07)
[2016-06-13] VITALS: BP 104/69
[2016-06-13 04:00] VITALS: BP 115/74
[2016-06-13] MEDS: PANTOPRAZOLE SODIUM 40 MG TABLET.DR PO SCH (06:49)
--- NOTE | 2016-06-13 07:14 | NUR ---
End of Shift Patient is a 35-year old, male, admitted for Benzodiazepine and ETOH dependence. With PMHx of Ulcerative Colitis, Seizure (10 yrs ago d/t ETOH withdrawal, Anxiety, Depression and Anemia. Patient was placed on a 5-day Ativan taper, started 06/07/2016 and with no adverse reactions noted. Pt is AAOx4, no SOB nor anxiety noted at this time. Pt is ambulatory with steady gait. No skin issues. Fall, universal and safety prec in place. Call light within reach. Kept pt warm, dry and comfortable. All needs met. Latest CIWA=0, slept for 6 hours. Endorsed to AM shift nurse for continuity of care.
--- NOTE | 2016-06-13 07:30 | NUR ---
Start of shift note; Received report from night nurse. Patient is AOX4. Patient is a 35 y/o male admitted on 06/06/16 for Benzodiazepine/ETOH dependence. Patient reported history of ulcerative colitis, seizure history, anxiety, depression, anemia. Patient was placed on a 5 day Ativan taper completed taper without any adverse reactions noted. Patient is medically cleared for discharge. Bed in lowest position, call light within reach. Will continue to monitor patient.
[2016-06-13 08:00] VITALS: BP 118/77
[2016-06-13] MEDS: GABAPENTIN 300 MG CAPSULE PO SCH (08:18)
[2016-06-13 08:19] VITALS: BP 118/77
[2016-06-13] MEDS: PAROXETINE HCL 20 MG TABLET PO SCH (08:19)
[2016-06-13] MEDS: BACLOFEN 20 MG TABLET PO PRN (08:19)
[2016-06-13] MEDS: CLONIDINE HCL 0.1 MG TABLET PO SCH (08:19)
[2016-06-13] MEDS: DICYCLOMINE HCL 20 MG TABLET PO SCH (08:19)
[2016-06-13] MEDS: MULTIVITAMINS,THERAPEUTIC TABLET PO SCH (08:19)
[2016-06-13] MEDS: FOLIC ACID 1 MG TABLET PO SCH (08:19)
[2016-06-13] MEDS: THIAMINE HCL 100 MG TABLET PO SCH (08:19)
[2016-06-13] MEDS: PATIENT MAY USE OWN MED- MD OK PO SCH (08:19)
--- NOTE | 2016-06-13 08:19 | NUR ---
PRN medication; Patient is complaining of muscle spasms on his lower back, PRN Baclofen 20mg PO PRN given as per ordered. Will continue to monitor patient.
--- NOTE | 2016-06-13 09:19 | NUR ---
Re-assessment; Patient denies pain/muscle spams at this time. PRN medication is effective. Patient is in a stable condition.
--- NOTE | 2016-06-13 09:45 | NUR ---
Discharge note; Patient is AOX4. All patient's belongings, valuables, prescriptions and home medications given to patient. Patient is medically cleared for discharge. Patient was escorted out of the unit and left the hospital on 06/13/16 at 0945. Patient left in a stable condition. patient completed treatment without any adverse reactions. Met all needs.
[2016-06-20 04:06] LABS: *BENZODIAZEPINES Positive (.); *CANNABINOID (THC) Positive (.); *COCAINE Positive (.); *NORDIAZEPAM Negative (Cutoff=300); *OXAZEPAM Negative (Cutoff=300)
== END 2016-06-13 09:45 | disposition home or self-care (01) | DRG 895 ==
LOC: SRC 21:29
PROVIDERS: ADMIT Internal Medicine; ATTEND Internal Medicine
PROC: HZ2ZZZZ Detoxification Services for Substance Abuse Treatment (ICD-10-PCS; principal; 2016-06-06)
PROC: HZ31ZZZ Individual Counseling for Substance Abuse Treatment, Behavioral (ICD-10-PCS; 2016-06-07)
PROC: HZ41ZZZ Group Counseling for Substance Abuse Treatment, Behavioral (ICD-10-PCS; 2016-06-08)
DX: F10.220 Alcohol dependence with intoxication, uncomplicated (principal); K85.20 Alcohol induced acute pancreatitis without necrosis or infection; K51.90 Ulcerative colitis, unspecified, without complications; F33.2 Major depressive disorder, recurrent severe without psychotic features; F14.20 Cocaine dependence, uncomplicated; F10.230 Alcohol dependence with withdrawal, uncomplicated; K70.10 Alcoholic hepatitis without ascites; F13.230 Sedative, hypnotic or anxiolytic dependence with withdrawal, uncomplicated; Y90.9 Presence of alcohol in blood, level not specified; Z83.79 Family history of other diseases of the digestive system; Z81.1 Family history of alcohol abuse and dependence; F17.210 Nicotine dependence, cigarettes, uncomplicated; G47.00 Insomnia, unspecified; I15.9 Secondary hypertension, unspecified; E86.0 Dehydration; D75.89 Other specified diseases of blood and blood-forming organs; F11.10 Opioid abuse, uncomplicated; F12.10 Cannabis abuse, uncomplicated; F06.4 Anxiety disorder due to known physiological condition; Z79.899 Other long term (current) drug therapy
CPT/HCPCS: 36415; 70030-TC; 80307; 80346; 80349; 80353; 82746; 83690; 83735; 84100; 84443; 85025; 86592; 86705; 86803; 87340; 87806; A4663; G6040-TC; J3411; J7030; Q0163